=== PATIENT | male | born 1960 | race Caucasian/White ===

== ENCOUNTER → 2017-07-23 | Outpatient (CLI) | payer BC ==
--- NOTE | 2017-07-24 05:22 | PAP/PSG TECHNICIAN REPORT ---
[facility] [employer] Field Service Technician Polysomnogram Report Study name: None Report date: 07/24/2017 Study date: 07/23/2017 Referring Physician: DR. GAMINO Name: ALCON ENGLE Interpreting Physician: Jonathan Mackey M.D. Date of : 1960 [employer] Field Service Technician: Nimo Perkins [facility]. Sex: Male Age: 57 StudyType: PSG PAP Weight: Height: 57 years, Height BMI: Medications: Tamsulosin .4 mg, Esomeprazole 40 mg, Lisinopril 5 mg, Thyroxine 150 mcg, Aspirin 81 mg Patient History 57 yr. old male here for an updated titration sleep study. Patient is currently on an auto-pap, with worsening AHI. Patient last study was done in 2015 and was increased to PAP+15. Parameters Monitored NPSG: E1-M2, E2-M1, Fp1-M2, Fp2-M1, F3-M2, F4-M2, F4-M1, C3-M2, C4-M2, C4-M1, O1-M2, O2-M2, O2-M1, T3-M2, T4-M1, P3-M2, P4-M1, CHIN1, CHIN2, HR, EKG, Legs, PFLOW, SNOR, FLOW, CFLOW, Tidal Volume, THOR, ABDO, SpO2, PLTH, CPRESS, ETCO2 Wave, ETCO2, pH Sleep Architecture Sleep Stages Time at Lights Off 10:01:39 PM STAGES Time (min.) TST (%) Time at Lights On 5:05:09 AM Wake 48.0 -- Total Recording Time (TRT) 423.00 min. N1 19.5 5 Total Sleep Period (TSP) 402.5 min. N2 190.5 51 Total Sleep Time (TST) 375.0min. N3 59.5 16 Awake Time 48.0 min. REM 105.5 28 Wake after Sleep Onset 38.0 min. Sleep Efficiency (SE) 89 % Sleep Onset Latency (JULIANN) 10.5 min. Number of Stage 1 Shifts None Awakenings 8 Stage Changes 67 Number of REM periods 7 REM 105.5 28 REM Latency 113.0 min. NREM 269.5 72 Body Position Analysis Supine Right Left Side Prone Vertical Total Sleep Time (min.) 200.5 210.7 0.0 210.71 0.0 0.0 Total Sleep Time (%) 44% 56% 0% 56 0% N/A% Total Sleep Time REM (min.) 81.5 24.0 0.0 None 0.0 0.0 Total Sleep Time NREM (min.) 82.8 186.7 0.0 None 0.0 0.0 Intermittent Wake (min.) 36.2 6.8 5.0 None 0.0 0.0 Total Sleep Period (%) 46% None None None None None Arousals Myoclonus (PLM) * Events Count Index Events Count Index Spontaneous 4 1 Events Awake (PLMW) 41 51.3 Respiratory 12 1.9 Events Asleep w/ Arousal (PLMA) 8 1.3 PLM 8 1 Events Asleep w/o Arousal (PLMS) 22 3.5 Snoring 11 2 Total Asleep 30 4.8 Total 35 6 Total 71 10 Respiratory Analysis * CA OA MA CH H RERA Total Count 0 7 0 0 32 0 39 Index 0.0 1.1 0.0 0 5.1 0 6.2 Mean Duration 0.0 23.8 0.0 0.00 50.2 0.0 45.4 Longest Duration 0.0 30.1 0.0 0.00 0.0 0.0 118.3 Respiratory Event Summary Total Supine ~Supine Right Left Prone REM NREM Apneas Count 7 3 4 4 N/A N/A 0 7 Index 1.1 1 1 1.1 N/A N/A 0 2 Hypopneas (4% Desat) Count 32 13 19 19 N/A N/A 2 30 Index 5.1 4.7 5 5.4 N/A N/A 1.1 6.7 Apneas & All Hypopneas Count 39 16 23 23 N/A N/A 2 37 Index 6.2 6 7 7 N/A N/A 1.1 8.2 Respiratory Events (Sample Collector+All Hyp+RERA) Count 39 16 23 23 N/A N/A 2 37 Index 6.2 6 7 6.5 N/A N/A 1.1 8.2 Respiratory Related Arousal Count 12 16 6 6 N/A N/A 0 12 Index 1.9 2 2 2 N/A N/A 0 3 Snoring Analysis Supine Right Left Prone REM NREM Total Snore duration 29.8 min Snores count 179 888 N/A N/A 40 1,027 1,067 Snore mean duration 1.7 Sec Snores index 65 253 N/A N/A 22.7 228.6 170.7 TST with snoring (%) 7.9% Desaturation Event Summary: Minimum %SpO2 Event Count Mean/Min/Max Duration(sec.) Desaturation Index % Time In Bed > 90 35 37.6 / 13.3 / 59.0 5.4 95.3 86 - 90 1 25.3 / 25.3 / 25.3 3.5 4.1 81 - 85 0 N/A 0.0 0.4 76 - 80 0 N/A 0.0 0.1 71 - 75 0 N/A 0.0 0.0 66 - 70 0 N/A 0.0 0.0 61 - 65 0 N/A 0.0 0.0 56 - 60 0 N/A 0.0 0.0 51 - 55 0 N/A 0.0 0.0 < 50 0 N/A 0.0 0.0 Total REM NREM Awake <50% 0.0 min. 0.0 min. 0.0 min. 0.0 min. 51 - 60% 0.2 min. 0.0 min. 0.0 min. 0.2 min. 61 - 70% 0.0 min. 0.0 min. 0.0 min. 0.0 min. 71 - 80% 0.3 min. 0.0 min. 0.0 min. 0.3 min. 81 - 90% 18.6 min. 1.7 min. 15.1 min. 1.7 min. 91 - 100% 389.6 min. 103.7 min. 254.1 min. 31.9 min. Average 93 93 93 93 Minimum SpO2 52 85 83 52 Desaturation Event Index 5.0 0.6 6.2 7.5 # Desat. Events below 89% 17 1 14 2 Time(%) with Saturation below 89% 1.6 0.1 1.2 0.2 Time(min.) with Saturation below 89% 6.5 0.6 5.0 1.0 Time (mins) REM (mins) NREM (mins) % of TST SpO2 Below 90% 26 1 N25 2.6 SpO2 Below 88% 9 0 0 1 Heart Rate Analysis Min (bpm) Max (bpm) Average (bpm) Awake 35 265 84 NREM 33 86 56 REM 49 62 54 Overall 33 86 56 Supplemental O2 Values Minimum O2 level: None Value Start Time End Time [employer] Field Service Technician Comments Mr. Zarate slept in the right, left, and supine positions. Runs of cardiac arrhythmia noted. No PLMs noted. No bruxism noted. CPAP was initiated at +4 CMH2O room air and up-titrated to an optimal level of + 13 CMH2O Cflex 1. A medium Cr and Paykel Simplus, was used during titration. Mr. Zarate awoke to use the restroom once during the night. Mr. Zarate stated, "(Example) I did not sleep as well as I do when I am in my own bed". The final report will be interpreted and signed by a sleep physician. The completed physician report will then be placed in the patient medical record. Therapy Event: Therapy (cm H20) 4 6 7 8 9 10 11 12 13 Total Time at Pressure (min.) 10.3 15.4 22.2 11.2 22.7 9.8 10.0 49.9 271.3 TST at Pressure (min.) 0.0 14.9 21.7 11.2 22.2 9.8 10.0 48.9 236.3 # Periods 1 1 1 1 1 1 1 1 1 Sleep Onset (min.) N/A 0.0 0.0 0.0 0.0 0.0 0.0 0.0 0.0 REM Onset (min.) N/A N/A N/A N/A N/A N/A N/A 21.7 71.8 Sleep Efficiency % 0 96 97 100 97 100 100 98 87 Wakefulness (%) 100.0 3.5 2.3 0.0 2.2 0.0 0.0 2.0 12.9 Wakefulness (min.) 10.3 0.5 0.5 0.0 0.5 0.0 0.0 1.0 35.0 NREM 1 (%) 0.0 25.3 9.4 0.0 4.4 15.3 0.0 3.0 3.5 NREM 1 (min.) 0.0 3.9 2.1 0.0 1.0 1.5 0.0 1.5 9.5 NREM 2 (%) 0.0 71.2 70.3 79.6 39.5 84.7 100.0 68.6 34.5 NREM 2 (min.) 0.0 11.0 15.6 8.9 9.0 8.3 10.0 34.2 93.5 NREM 3 (%) 0.0 0.0 18.0 20.4 53.9 0.0 0.0 14.4 12.5 NREM 3 (min.) 0.0 0.0 4.0 2.3 12.2 0.0 0.0 7.2 33.8 REM (%) 0.0 0.0 0.0 0.0 0.0 0.0 0.0 12.0 36.7 REM (min.) 0.0 0.0 0.0 0.0 0.0 0.0 0.0 6.0 99.5 # Arousals N/A 5 5 0 6 5 2 2 10 Arousal Index N/A 20.1 13.8 0.0 16.2 30.5 12.0 2.5 2.5 # Snore N/A 119 233 167 312 42 49 82 63 Snore Index N/A 479.0 644.6 895.8 844.0 256.3 293.7 100.7 16.0 AHI N/A 20.1 22.1 5.4 21.6 42.7 18.0 8.6 0.0 AHI Supine N/A N/A N/A N/A N/A 39.6 18.0 15.2 0.0 AHI Non-Supine N/A 20.1 22.1 5.4 21.6 80.5 N/A 0.0 0.0 NREM AHI N/A 20.1 22.1 5.4 21.6 42.7 18.0 7.0 0.0 REM AHI N/A N/A N/A N/A N/A N/A N/A 20.0 0.0 RDI N/A 20.1 22.1 5.4 21.6 42.7 18.0 8.6 0.0 # Obstructive N/A 0 0 0 3 4 0 0 0 # Central Ap N/A 0 0 0 0 0 0 0 0 # Mixed N/A 0 0 0 0 0 0 0 0 # Hypopneas N/A 5 8 1 5 3 3 7 0 RERAS N/A 0 0 0 0 0 0 0 0 Total Respiratory Events N/A 5 8 1 8 7 3 7 0 Time Below SpO2 89.00% (min.) 0.0 0.2 1.0 0.0 0.6 1.5 0.6 1.7 0.0 Mean NREM SpO2 (%) N/A 92 92 92 92 92 92 93 93 Mean REM SpO2 (%) N/A N/A N/A N/A N/A N/A N/A 92 93 Mean Sleep SpO2 (%) N/A 92 92 92 92 92 92 93 93 Min NREM SpO2 (%) N/A 88 88 89 83 84 84 85 91 Min REM SpO2 (%) N/A N/A N/A N/A N/A N/A N/A 85 89 Position Supine (min.) 0.0 0.0 0.0 0.0 0.0 9.1 10.0 27.7 117.5 Position Non-supine (min.) 0.0 14.9 21.7 11.2 22.2 0.7 0.0 21.2 118.8 LM Index Sleep N/A 8.0 13.8 5.4 0.0 0.0 0.0 3.7 4.8 LM Index NREM N/A 8.0 13.8 5.4 0.0 0.0 0.0 2.8 3.9 LM Index REM N/A N/A N/A N/A N/A N/A N/A 10.0 6.0 Mean Heart Rate (bpm) N/A 60 57 56 57 57 56 56 55 Min Heart Rate (bpm) N/A 53 33 54 47 52 52 52 49
--- NOTE | 2017-07-24 15:22 | POLYSOMNOGRAPH REPORT ---
CLINICAL DATA: A 57-year-old male referred by Dr. Prince. The patient had sleep apnea diagnosed in the past and is currently on auto CPAP with a worsening AHI on his machine. SLEEP ARCHITECTURE: Total sleep period was 402.5 minutes. Total sleep time was 375 minutes divided between 269.5 minutes of non-REM sleep and 105.5 minutes of REM sleep. Sleep onset latency was 10.5 minutes. REM latency was 113 minutes. Sleep efficiency was 89%. Wake after sleep onset was 38 minutes. Sleep consisted of stage N1 5%, stage N2 51%, stage N3 16%, and REM 28%. AROUSAL DATA: Thirty five arousals were recorded for an index of 6 per hour. PERIODIC LIMB MOVEMENT DATA: Thirty limb movements during sleep were noted except 4.8 per hour with arousal index of 1.3 per hour. RESPIRATORY DATA: The AHI was 6.2. There were 7 obstructive apneic episodes. The longest apneic episode was 30 seconds. There were 32 hypopneic episodes with a mean duration of 50 seconds. OXIMETRY DATA: Nocturnal hypoxemia was seen. Oxygen spencer was 83% during non-REM sleep. Mean saturation was 93%. Time below 88% was 9 minutes. ECHOCARDIOGRAM: Heart ranged from 33-86 beats per minute. No arrhythmias were noted. Occasional PVCs were noted. FISCAL ECONOMIST'S COMMENTS: The patient slept in the right, left, and supine positions. He used a medium Cr and Paykel Simplus mask. He was titrated up to 13 cm water pressure, C-Flex setting #1. At his final pressure setting, he slept for 236.3 minutes with an AHI of 0. IMPRESSION: Obstructive sleep apnea corrected with CPAP 13 cm of water pressure, C-Flex setting #1 with a medium Cr & Paykel Simplus mask. RECOMMENDATIONS: The patient's CPAP should be set at 13 cm of water pressure, C-Flex setting #1. He should be seen back in followup within 90 days to document efficacy and compliance. AFSHIN
== END | disposition home or self-care (01) ==
LOC: C.NEUR 21:00
PROVIDERS: ATTEND Internal Medicine Pulmonary Disease
DX: G47.33 Obstructive sleep apnea (adult) (pediatric) (principal)